=== PATIENT | female | born 1965 ===

== ENCOUNTER → 2018-10-29 21:14 | Outpatient (REF) | payer BC, SELFPAY ==
[2018-10-30 00:51] LABS: Hematocrit 40.5 % (36-46); Hemoglobin 13.2 g/dL (12.0-16.0); Mean Corpuscular HGB Conc 32.7 % (30-36); Mean Corpuscular Hemoglobin 29.2 PG (26-34); Mean Corpuscular Volume 89.1 fL (80-100); Platelet Count 243 X10^3/uL (150-400); Red Blood Cell Count 4.54 X10^6/uL (4.0-5.2); Red Cell Distribution Width 16.4 % (11.6-14.8); White Blood Cell Count 3.4 X10^3/uL (4.5-11.0)
[2018-10-30 00:54] LABS: Add Manual Diff / Slide Review YES
[2018-10-30 02:35] LABS: Ferritin 16.2 ng/mL (11.1-264)
[2018-10-30 03:58] LABS: Neutrophils Absolute Manual 1530 /uL (3000-5900); RBC Morphology Normal Morphology; Total Cells Counted 100
[2018-11-01 12:17] LABS: Progesterone < 0.5 ng/mL
[2018-11-02 18:25] LABS: Estriol,Serum <0.10 ng/mL; Estrone 11 pg/mL
== END ==
LOC: LAB 21:14
PROVIDERS: Visit Provider Naturopath
DX: N93.8 Other specified abnormal uterine and vaginal bleeding (principal); Z13.89 Encounter for screening for other disorder; D50.9 Iron deficiency anemia, unspecified; Z85.3 Personal history of malignant neoplasm of breast
CPT/HCPCS: 36415; 82627; 82671; 82728; 83001; 83002; 84144; 84402; 84403; 85025